=== PATIENT | male | born 1980 | race Caucasian/White ===

== ENCOUNTER 2017-01-14 17:05 | Emergency (ER) | payer OTHER ==
[~2017-01-14 17:05] MED LIST: ACYCLOVIR400 MG PO; HUMULIN R100 U/ML SUBQ; TOBREX3.5 GM OP
[2017-01-14] MEDS ORDERED: NEURONTIN100 MG (17:12)
[2017-01-14] MEDS ORDERED: AMITRIPTYLINE150 MG (17:12)
[2017-01-14 18:23] LABS: BASOPHIL# 0.1 X10e3 (0-0.3); BASOPHIL% 0.8 % (0-2.5); EOSINOPHIL# 0.2 X10e3 (0-0.7); EOSINOPHIL% 2.4 % (0.0-7.0); HEMOGLOBIN 14.9 gm/dL (13.0-16.0); LYMPHOCYTE# 2.2 X10e3 (1.0-3.5); LYMPHOCYTE% 30.1 % (17.0-45.0); MEAN CELL VOLUME 87.5 FL (83-96); MEAN CORPUSCULAR HEMOGLOBIN 29.6 PG (28-34); MEAN CORPUSCULAR HGB CONC 33.8 g/dL (30-36); MEAN PLATELET VOLUME 9.2 FL (6.5-11.5); MONOCYTE# 0.6 X10e3 (0-1.0); MONOCYTE% 8.6 % (3.0-12.0); NEUTROPHIL# 4.3 X10e3 (1.5-7.1); NEUTROPHIL% 58.1 % (40-75); PLATELET COUNT 222 X10e3 (140-420); RED BLOOD COUNT 5.03 X10e (3.90-5.60); RED CELL DISTRIBUTION WIDTH 13.8 % (11.0-15.5); WHITE BLOOD COUNT 7.5 X10e3 (4.0-10.5)
[2017-01-14 18:26] LABS: DIFF IND NO
[2017-01-14 18:39] LABS: ALBUMIN SERUM 4.3 g/dL (3.5-5.0); BILIRUBIN,TOTAL 0.4 mg/dL (0.2-2.0); CALCIUM SERUM 9.2 mg/dL (8.4-10.2); GLOM FILT RATE Estimated 95.1 mL/min (>60); POTASSIUM 4.1 mmol/L (3.5-5.1); PROTEIN TOTAL SERUM 8.1 g/dL (6.0-8.3)
== END 2017-01-14 20:10 | disposition home or self-care (01) ==
LOC: SED 17:05
PROVIDERS: Physician Assistant
DX: E11.65 Type 2 diabetes mellitus with hyperglycemia (principal); F17.200 Nicotine dependence, unspecified, uncomplicated; I10 Essential (primary) hypertension; E78.5 Hyperlipidemia, unspecified; Z98.890 Other specified postprocedural states; Z79.4 Long term (current) use of insulin
CPT/HCPCS: 36415; 80053; 82947; 85025; 96360; 96361; 96374; 99284